=== PATIENT | male | born 1940 | race Hispanic/Latino ===

== ENCOUNTER 2021-10-01 10:25 | Emergency (ER) | payer OTHER ==
[~2021-10-01] VITALS: Ht 167.6 cm; Wt 77.1 kg
[2021-10-01] MEDS ORDERED: ACETAMINOPHEN 500 MG TABLET PO ONE (11:30)
[2021-10-01 13:05] VITALS: BP 136/60
== END 2021-10-01 13:09 | disposition home or self-care (01) ==
LOC: EDH 10:25
DX: S09.90XA Unspecified injury of head, initial encounter (principal); W18.39XA Other fall on same level, initial encounter; Y93.89 Activity, other specified; Y92.89 Other specified places as the place of occurrence of the external cause; Y99.8 Other external cause status
CPT/HCPCS: 70450; 93005